=== PATIENT | male | born 1990 | race Caucasian/White ===

== ENCOUNTER 2017-06-07 22:45 | Emergency (ER) | payer SELFPAY ==
[~2017-06-07] VITALS: Ht 172.7 cm; Wt 68.0 kg
[2017-06-07 23:07] VITALS: Ht 172.7 cm; Wt 68.0 kg
[2017-06-08 01:20] LABS: BASOPHIL # 0.1 10^3/ul (0.0-0.1); BASOPHILS % 0.5 % (0.0-2.0); EOSINOPHILS # 0.3 10^3/ul (0.0-0.5); EOSINOPHILS % 2.3 % (0.0-7.0); HEMOGLOBIN 15.7 g/dl (14.0-18.0); LYMPHOCYTES # 3.8 10^3/ul (0.8-2.9); LYMPHOCYTES % 34.3 % (15.0-51.0); MEAN CORPUSCULAR HEMOGLOBIN 30.4 pg (29.0-33.0); MEAN CORPUSCULAR HGB CONC 34.1 g/dl (32.0-37.0); MEAN CORPUSCULAR VOLUME 89.1 fl (82.0-101.0); MEAN PLATELET VOLUME 9.1 fl (7.4-10.4); MONOCYTE # 0.8 10^3/ul (0.3-0.9); MONOCYTES % 6.9 % (0.0-11.0); NEUTROPHIL # 6.1 10^3/ul (1.6-7.5); NEUTROPHILS % 55.8 % (39.0-77.0); PLATELET COUNT 299 10^3/UL (140-415); RED BLOOD COUNT 5.16 10^6/ul (4.70-6.10); RED CELL DISTRIBUTION WIDTH 12.8 % (11.5-14.5); WHITE BLOOD COUNT 10.9 10^3/ul (4.8-10.8)
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
[2017-06-08 02:02] LABS: ALANINE AMINOTRANSFERASE 42 IU/L (13-69); ALBUMIN 4.5 g/dl (3.3-4.9); ALKALINE PHOSPHATASE 106 IU/L (42-121); ANION GAP 19 (8-16); ASPARTATE AMINO TRANSFERASE 50 IU/L (15-46); BILIRUBIN,INDIRECT 0.3 mg/dl (0-1.1); BILIRUBIN,TOTAL 0.3 mg/dl (0.2-1.3); BLOOD UREA NITROGEN 16 mg/dl (7-20); CALCIUM 8.8 mg/dl (8.4-10.2); CARBON DIOXIDE 20 mmol/L (21-31); CHLORIDE 105 mmol/L (97-110); CREATININE 1.06 mg/dl (0.61-1.24); GLUCOSE 117 mg/dl (70-220); POTASSIUM 3.7 mmol/L (3.5-5.1); SODIUM 140 mmol/L (135-144); TOTAL PROTEIN 7.7 g/dl (6.1-8.1)
[2017-06-08 02:22] LABS: ACETAMINOPHEN < 10.0 ug/ml (10.0-30.0); ETHANOL < 10.0 mg/dl; SALICYLATE < 1.0 mg/dl (5.0-30.0)
[2017-06-08] MEDS ORDERED: GABA100C14 PO ×2 (02:51→02:53)
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
[2017-06-08] MEDS ORDERED: OLANZAPINE 5 MG TAB PO ONE (03:00)
[2017-06-08] MEDS ORDERED: LEVETIRACETAM 1000 MG (PMX) 100 ML IVPB STA (06:50)
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
[2017-06-08] MEDS ORDERED: ACETAMINOPHEN 500 MG TAB PO STA ×2 (07:01→18:45)
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
[2017-06-08] MEDS ORDERED: LEVETIRACETAM 500 MG TAB PO SCH (20:00)
[2017-06-08 20:25] VITALS: BP 91/54; PULSE 80; RESP 16; TEMP 97.9
== END 2017-06-08 20:39 | disposition short-term general hospital (02) ==
LOC: E/R 22:45
DX: R45.851 Suicidal ideations (principal); R45.850 Homicidal ideations; R40.2142 Coma scale, eyes open, spontaneous, at arrival to emergency department; R40.2252 Coma scale, best verbal response, oriented, at arrival to emergency department; R40.2362 Coma scale, best motor response, obeys commands, at arrival to emergency department
CPT/HCPCS: 36415; 80053; 80306; 82962; 85025; 96374; 99285; J1953

== ENCOUNTER 2017-10-17 21:26 | Emergency (ER) | END 2017-10-17 21:55 | disposition left against medical advice (07) ==